=== PATIENT | male | born 1960 | race African-American/Black ===

== ENCOUNTER 2017-04-04 04:38 | Emergency (ER) | payer MEDICAID, OTHER ==
[~2017-04-04] VITALS: Ht 170.2 cm; Wt 94.3 kg
[~2017-04-04 04:38] MED LIST: LEVAQUIN750 MG ORAL; NORCO 5-325 TA1 EACH ORAL
[2017-04-04] MEDS ORDERED: VITAMIN D400 INTLU ORAL (04:44)
[2017-04-04] MEDS ORDERED: IBUPROFEN600 MG ORAL (04:44)
[2017-04-04] MEDS ORDERED: OMEPRAZOLE40 M1 ORAL (04:44)
[2017-04-04] MEDS ORDERED: TAMSULOSIN HCL0.4 MG ORAL (04:44)
[2017-04-04] MEDS ORDERED: LISINOPRIL20 MG ORAL (04:44)
[2017-04-04] MEDS ORDERED: BANOPHEN50 MG PO (04:44)
[2017-04-04] MEDS ORDERED: SIMVASTATIN20 MG ORAL (04:44)
[2017-04-04] MEDS ORDERED: HYDROCHLOROTHIA25 MG ORAL (04:44)
--- NOTE | 2017-04-04 04:49 | Emergency Room Report ---
History of Present Illness General Chief Complaint: Male Urogenital Problems Source: Patient Present Illness HPI 56-year-old male, history of hypertension, presenting with burning on urination for 2-3 days. Patient also complaining of urinary frequency and urgency. States he has had some chills but no obvious fevers. Otherwise has been eating and drinking normally Allergies: Coded Allergies: NO KNOWN DRUG ALLERGIES (Unverified Allergy, Unknown, 03/22/14) Patient History Past Medical History: see triage record Past Surgical History: none Pertinent Family History: none Reviewed Nursing Documentation: PMH: Agreed, PSxH: Agreed Nursing Documentation-PMH Hx Cardiac Problems: No - BACK PAIN, CHRONIC KNEE PAIN, INDIGESTION Hx Hypertension: Yes Review of Systems All Other Systems: negative except mentioned in HPI Physical Exam Vital Signs Date Time Temp Pulse Resp B/P (MAP) Pulse Ox O2 Delivery O2 Flow Rate FiO2 04/04/17 04:37 76 17 134/86 98 Room Air Sp02 EP Interpretation: reviewed, normal General Appearance: normal inspection, well appearing, no apparent distress, alert, GCS 15, non-toxic Head: normocephalic, atraumatic Eyes: bilateral eye normal inspection, bilateral eye PERRL, bilateral eye EOMI ENT: normal ENT inspection, normal pharynx, normal voice, moist mucus membranes Neck: normal inspection, full range of motion, supple Respiratory: normal inspection, lungs clear, normal breath sounds, no respiratory distress, no retraction, no wheezing, speaking full sentences, chest symmetrical Cardiovascular #1: normal inspection, regular rate, rhythm, normal capillary refill Cardiovascular #2: 2+ radial (R), 2+ radial (L) Gastrointestinal: normal inspection, non tender, soft, non-distended, no guarding Genitourinary: no CVA tenderness Musculoskeletal: normal inspection, back normal, normal range of motion, non- tender Neurologic: normal inspection, alert, oriented x3, responsive, motor strength/ tone normal, sensory intact, normal gait, speech normal Psychiatric: normal inspection, judgement/insight normal, memory normal Skin: normal inspection, normal color, no rash, warm/dry, well hydrated, normal turgor Medical Decision Making Diagnostic Impression: Primary Impression: UTI (urinary tract infection) ER Course 56-year-old male with dysuria DDX: UTI / cystitis vs. pyelo Plan: UA, UCX ER course: Pt remains stable/nontoxic appearing in ED. UA positive remains nontoxic and tolerates PO. VSS, afebrile 97.3 first dose of keflex given here Disposition: Patient will be discharged home with prescription of antibiotics. Strict return precautions to discussed with patient such as high fever, chills, abdominal pain , nausea or vomiting. Patient verbalized understanding. Patient instructed to follow up with primary care doctor within 3 days. Patient agrees with plan. Please note that this Emergency Department Report was dictated using [employer] technology software, occasionally this can lead to erroneous entry secondary to interpretation by the dictation equipment Laboratory Tests Test 04/04/17 05:15 Urine Color Yellow Urine Appearance Slightly cloudy Urine pH 6.5 (4.5-8.0) Urine Specific [place] 1.005 (1.005-1.035) Urine Protein 3+ (NEGATIVE) H Urine Glucose (UA) Negative (NEGATIVE) Urine Ketones 1+ (NEGATIVE) H Urine Occult Blood 4+ (NEGATIVE) H Urine Nitrite Positive (NEGATIVE) H Urine Bilirubin 1+ (NEGATIVE) H Urine Ictotest Pending Urine Urobilinogen 4 MG/DL (0.0-1.0) H Urine Leukocyte Esterase 3+ (NEGATIVE) H Urine RBC Pending Urine WBC Pending Urine Squamous Epithelial Cells Pending Urine Bacteria Pending Last Vital Signs Date Time Temp Pulse Resp B/P (MAP) Pulse Ox O2 Delivery O2 Flow Rate FiO2 04/04/17 04:37 76 17 134/86 98 Room Air Disposition: HOME, SELF-CARE Condition: Improved Scripts Cephalexin* (KEFLEX*) 500 Mg Capsule 500 MG ORAL Q6H for 7 Days, #28 CAP 0 Refills Prov: Rahul Castro M.D. 04/04/17 Rahul Castro M.D. Apr 04, 2017 04:49
[2017-04-04 05:07] VITALS: BP 134/86
[2017-04-04 05:29] LABS: KETONES,URINE 1+ (NEGATIVE); LEUKOCYTE ESTERASE ,URINE 3+ (NEGATIVE); NITRITE,URINE POSITIVE (NEGATIVE); PH,URINE 6.5 (4.5-8.0); PROTEIN,URINE 3+ (NEGATIVE); UROBILINOGEN,URINE 4 MG/DL (0.0-1.0)
[2017-04-04 05:31] LABS: APPEARANCE,URINE SLIGHTLY CLOUDY
[2017-04-04] MEDS ORDERED: KEFLEX500 MG ORAL (05:42)
[2017-04-04] MEDS ORDERED: Cephalexin 500mg cap ORAL ONE (05:45)
[2017-04-04 06:02] VITALS: BP 134/86
[2017-04-04 06:04] LABS: BACTERIA,URINE MODERATE /HPF; ICTOTEST POSITIVE; RBC,URINE 30-40 /HPF (0 - 0); WBC,URINE TNTC /HPF (0 - 0)
[2017-04-19] MEDS ORDERED: LEVAQUIN500 MG ORAL (11:12)
== END 2017-04-04 06:02 | disposition home or self-care (01) ==
LOC: EDBD 04:38 → EMR 04:47
DX: N39.0 Urinary tract infection, site not specified (principal); I10 Essential (primary) hypertension
CPT/HCPCS: 81003; 87086; 87181; 99284